=== PATIENT | male | born 1980 | race Caucasian/White ===

== ENCOUNTER 2024-05-22 07:53 | Inpatient (IN) | payer MEDICAID ==
[~2024-05-22] VITALS: Ht 165.1 cm; Wt 45.4 kg
[2024-05-22 07:56] VITALS: BP 100/56; PULSE 60; RESP 16; TEMP 98.2; O2SAT 98
[2024-05-22 09:49] LABS: BASOPHILS % (AUTO) 0.3 % (0.0-2.0); EOSINOPHILS # (AUTO) 0.2 K/uL (0-0.4); EOSINOPHILS % (AUTO) 4.9 % (0.0-4.0); HEMATOCRIT 33.2 % (36-52); HEMOGLOBIN 10.3 g/dL (12.0-18.0); LYMPHOCYTES % (AUTO) 20.4 % (20.5-51.1); MEAN CORPUSCULAR HEMOGLOBIN 23 pg (27-31); MEAN CORPUSCULAR HGB CONC 31 g/dL (33-37); MEAN CORPUSCULAR VOLUME 75.6 fL (80-94); MONOCYTES # (AUTO) 0.3 K/uL (0.8-1.0); MONOCYTES % (AUTO) 6.6 % (1.7-9.3); NEUTROPHILS # (AUTO) 3.4 K/uL (1.8-7.7); NEUTROPHILS % (AUTO) 67.8 % (42.2-75.2); PLATELET COUNT (AUTO) 173 K/uL (140-450); RED BLOOD CELL COUNT(AUTO) 4.39 MIL/uL (4.20-6.10)
[2024-05-22 10:18] LABS: ANION GAP 12.1 (8-16); CALCIUM 9.5 mg/dL (8.5-10.1); CARBON DIOXIDE 28.7 mmol/L (21-32); CREATININE 0.7 mg/dL (0.6-1.3); POTASSIUM 4.8 mmol/L (3.5-5.1)
[2024-05-22] MEDS ORDERED: MORPHINE SULFATE 2 MG/ML SYR IVP PRN (10:35)
[2024-05-22] MEDS ORDERED: KCL 20 MEQ IN 100 mL PREMIX 200 ML IV PRN (10:35)
[2024-05-22] MEDS ORDERED: ONDANSETRON 4 MG/2 ML VIAL IVP PRN (10:35)
[2024-05-22] MEDS ORDERED: MORPHINE SULFATE 4 MG/ML SYR IVP PRN (10:35)
[2024-05-22] MEDS: DEXT 5% /NACL 0.9% 1,000 ML IV SCH (10:49)
[2024-05-22] MEDS ORDERED: DOCU1POW (12:07)
[2024-05-22] MEDS ORDERED: CALC0.5S6 PO (12:07)
[2024-05-22] MEDS ORDERED: ZINC-31 (12:07)
[2024-05-22] MEDS ORDERED: DIVA125E1 (12:07)
[2024-05-22] MEDS ORDERED: ASPI-1822 PO (12:07)
[2024-05-22] MEDS ORDERED: FAMO-90 PO (12:07)
[2024-05-22] MEDS ORDERED: FOLI2000 PO (12:07)
[2024-05-22] MEDS ORDERED: FLUT16SP10 NS (12:07)
[2024-05-22] MEDS ORDERED: MIRABULK PO (12:07)
[2024-05-22 16:00] VITALS: BP 135/85; PULSE 55; RESP 20; TEMP 97.1; O2SAT 99
[2024-05-22 20:00] VITALS: BP 112/60; PULSE 56; RESP 18; TEMP 97.2; O2SAT 97
[2024-05-23 05:29] LABS: BASOPHILS % (AUTO) 0.7 % (0.0-2.0); EOSINOPHILS # (AUTO) 0.2 K/uL (0-0.4); EOSINOPHILS % (AUTO) 5.8 % (0.0-4.0); HEMATOCRIT 30.1 % (36-52); HEMOGLOBIN 9.4 g/dL (12.0-18.0); LYMPHOCYTES # (AUTO) 1.3 K/uL (2.0-11.5); LYMPHOCYTES % (AUTO) 33.1 % (20.5-51.1); MEAN CORPUSCULAR HEMOGLOBIN 23 pg (27-31); MEAN CORPUSCULAR HGB CONC 31 g/dL (33-37); MEAN CORPUSCULAR VOLUME 74.8 fL (80-94); MONOCYTES # (AUTO) 0.5 K/uL (0.8-1.0); MONOCYTES % (AUTO) 11.4 % (1.7-9.3); NEUTROPHILS # (AUTO) 1.9 K/uL (1.8-7.7); PLATELET COUNT (AUTO) 157 K/uL (140-450); RED BLOOD CELL COUNT(AUTO) 4.02 MIL/uL (4.20-6.10); RED CELL DISTRIBUTION WIDTH 17.2 % (11.6-13.7)
[2024-05-23 05:44] LABS: ANION GAP 11.6 (8-16); CALCIUM 9.3 mg/dL (8.5-10.1); CARBON DIOXIDE 26.8 mmol/L (21-32); CREATININE 0.6 mg/dL (0.6-1.3); POTASSIUM 4.4 mmol/L (3.5-5.1)
[2024-05-23 08:00] VITALS: PULSE 50; RESP 16; O2SAT 97
[2024-05-23 09:06] VITALS: BP 101/55; PULSE 50; RESP 16; TEMP 98.3; O2SAT 97
[2024-05-23] MEDS: bisacodyL 10 MG SUPP RC SCH (15:11)
[2024-05-23 16:31] VITALS: BP 106/52; PULSE 55; RESP 16; TEMP 98.1; O2SAT 98
[2024-05-23 20:00] VITALS: PULSE 60; RESP 18; O2SAT 96
[2024-05-24 01:00] VITALS: BP 110/56; PULSE 76; RESP 18; TEMP 98.2; O2SAT 96
[2024-05-24 05:29] LABS: BASOPHILS % (AUTO) 0.5 % (0.0-2.0); EOSINOPHILS # (AUTO) 0.3 K/uL (0-0.4); EOSINOPHILS % (AUTO) 7.5 % (0.0-4.0); HEMATOCRIT 31.6 % (36-52); HEMOGLOBIN 9.9 g/dL (12.0-18.0); LYMPHOCYTES # (AUTO) 1.4 K/uL (2.0-11.5); LYMPHOCYTES % (AUTO) 34.5 % (20.5-51.1); MEAN CORPUSCULAR HEMOGLOBIN 23 pg (27-31); MEAN CORPUSCULAR HGB CONC 31 g/dL (33-37); MEAN CORPUSCULAR VOLUME 74.7 fL (80-94); MONOCYTES # (AUTO) 0.4 K/uL (0.8-1.0); MONOCYTES % (AUTO) 9.4 % (1.7-9.3); NEUTROPHILS % (AUTO) 48.1 % (42.2-75.2); PLATELET COUNT (AUTO) 166 K/uL (140-450); RED BLOOD CELL COUNT(AUTO) 4.24 MIL/uL (4.20-6.10); WHITE BLOOD COUNT (AUTO) 4.2 K/uL (4.8-10.8)
[2024-05-24 06:37] LABS: ANION GAP 12.3 (8-16); CARBON DIOXIDE 28.6 mmol/L (21-32); CREATININE 0.7 mg/dL (0.6-1.3); POTASSIUM 3.9 mmol/L (3.5-5.1)
[2024-05-24 08:00] VITALS: BP 93/50; PULSE 51; RESP 16; TEMP 99; O2SAT 100
[2024-05-24] MEDS: MIDAZOLAM 5 MG/5 ML VIAL ONE (11:56)
[2024-05-24] MEDS: ceFAZolin 1,000 MG VIAL ONE (11:56)
[2024-05-24] MEDS: fentaNYL citrate 0.05 MG/ML VIAL ONE (11:56)
[2024-05-24] MEDS: MIDAZOLAM 2 MG/2 ML VIAL IVP ONE (12:01)
[2024-05-24] MEDS: fentaNYL citrate 0.05 MG/ML VIAL IVP ONE (12:02)
[2024-05-24] MEDS: CHLORHEXADINE GLUC 2% CLOTH TP SCH (13:16)
[2024-05-24] MEDS: MUPIROCIN CA NASAL 2% 1GM TUBE NS SCH (13:19)
[2024-05-24 16:00] VITALS: BP 117/77; PULSE 81; RESP 16; TEMP 98.9; O2SAT 100
[2024-05-24 16:03] VITALS: BP 93/50; PULSE 51; RESP 16; TEMP 99
[2024-05-25] MEDS ORDERED: LACTULOSE 20 GM/30 ML UDC PO SCH (09:00)
== END 2024-05-24 18:15 | disposition home or self-care (01) | DRG 252 ==
LOC: MED 07:53 → MTU 10:32 → OBSVTOIN 10:32 → MTU 10:34 → UNDOADMOB 10:34 → MMU 10:34 → MTU 11:40 → INTOOBSV 14:28 → OBSVTOIN 14:28
PROVIDERS: ADMIT Internal Medicine; ATTEND Internal Medicine
PROC: 0DH68UZ Insertion of Feeding Device into Stomach, Via Natural or Artificial Opening Endoscopic (ICD-10-PCS; 2024-05-24)
PROC: 0DP6XUZ Removal of Feeding Device from Stomach, External Approach (ICD-10-PCS; principal; 2024-05-24 11:00)
DX: K94.23 Gastrostomy malfunction (principal); R53.2 Functional quadriplegia; D63.8 Anemia in other chronic diseases classified elsewhere; R13.10 Dysphagia, unspecified; G80.9 Cerebral palsy, unspecified; Z20.822 Contact with and (suspected) exposure to COVID-19; G40.909 Epilepsy, unspecified, not intractable, without status epilepticus; Z79.899 Other long term (current) drug therapy
CPT/HCPCS: 36415; 80048; 85025; 87081; J0690; J2250; J3010; J7030